=== PATIENT | female | born 2000 ===

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

== ENCOUNTER → 2024-02-11 | Outpatient (CLI) | payer OTHER ==
[~2024-02-11] MED LIST changes: +Budeprion Sr150 MG PO; +DULOXETINE HCL60 M1 PO; +ESCI10 PO; +HYDPAM25 PO; +MINOCYCLINE HCL PO
== END ==
LOC: LAB 10:07 → LAB SHORT 10:07
DX: L70.1 Acne conglobata (principal); Z79.899 Other long term (current) drug therapy
CPT/HCPCS: 81025

== ENCOUNTER → 2024-02-17 | Outpatient (CLI) | payer OTHER ==
[2024-02-17 18:29] LABS: Influenza A, PCR NEGATIVE (NEGATIVE); Influenza B, PCR NEGATIVE (NEGATIVE); Resp Syncytial Virus, PCR NEGATIVE (NEGATIVE); SARS-Cov-2 (COVID-19) PCR, MMC NEGATIVE (NEGATIVE)
== END ==
LOC: LAB SHORT 15:00 → LAB 15:00
PROVIDERS: Physician Assistant
DX: R05.9 Cough, unspecified (principal)
CPT/HCPCS: 0241U

== ENCOUNTER → 2024-04-28 | Outpatient (CLI) | payer OTHER ==
[2024-04-28 19:23] LABS: Influenza A, PCR NEGATIVE (NEGATIVE); Influenza B, PCR NEGATIVE (NEGATIVE); Resp Syncytial Virus, PCR NEGATIVE (NEGATIVE); SARS-Cov-2 (COVID-19) PCR, MMC NEGATIVE (NEGATIVE)
== END ==
LOC: LAB 18:15 → LAB SHORT 18:15
PROVIDERS: Nurse Practitioner Family
DX: J02.9 Acute pharyngitis, unspecified (principal); R05.9 Cough, unspecified
CPT/HCPCS: 0241U

== ENCOUNTER → 2024-05-26 | Outpatient (CLI) | payer OTHER | LOC: LAB SHORT 16:38 → LAB 16:38 | DX: L70.1 Acne conglobata (principal); Z79.899 Other long term (current) drug therapy | CPT/HCPCS: 81025 ==

== ENCOUNTER → 2024-07-01 | Outpatient (CLI) | payer OTHER | LOC: LAB 16:36 → LAB SHORT 16:36 | DX: L70.1 Acne conglobata (principal); Z79.899 Other long term (current) drug therapy | CPT/HCPCS: 81025 ==